=== PATIENT | male | born 1945 | race Caucasian/White ===

== ENCOUNTER 2017-01-02 18:41 | Inpatient (IN) | payer OTHER ==
[~2017-01-02] VITALS: Ht 177.8 cm; Wt 91.6 kg
[~2017-01-02 18:41] MED LIST: FLOMAX PO; GLIPIZIDE ER10 MG PO; GLUCOPHAGE500 MG PO; LIPITOR20 MG PO; LISINOPRIL10 MG PO; NORCO 5-325 TA1 EACH PO
[2017-01-02 18:42] VITALS: BP 154/90
[2017-01-02 19:04] LABS: URINE BILIRUBIN NEGATIVE (Negative); URINE BLOOD NEGATIVE (Negative); URINE COLOR YELLOW; URINE GLUCOSE-RANDOM* TRACE (Negative); URINE KETONES NEGATIVE (Negative); URINE NITRITE NEGATIVE (Negative); URINE PROTEIN (DIPSTICK) TRACE (Negative); URINE SPECIFIC GRAVITY >= 1.030 (1.003-1.035); URINE UROBILINOGEN 0.2 E.U./dl (0.2-1.0)
[2017-01-02 19:19] LABS: HEMOGLOBIN 12.5 gm/dL (14.0-18.0); MCH 31.3 pg (26.0-34.0); MCHC 34.6 g/dL (28.0-37.0); MCV 90.6 fL (80.0-100.0); PLATELET COUNT 112 thou/uL (150-400); RBC 3.98 mil/uL (4.50-6.00); RDW 13.7 % (10.5-14.5); WBC 6.7 thou/uL (4.0-11.0)
[2017-01-02] MEDS ORDERED: TRAMADOL 50 MG50 MG PO (19:19)
[2017-01-02 19:20] LABS: MANUAL DIFF YES
[2017-01-02 19:29] LABS: CALCIUM 9.4 mg/dL (8.5-10.1); POTASSIUM 3.5 mmol/L (3.5-5.1)
[2017-01-02 19:35] LABS: ALBUMIN 3.3 g/dL (3.4-5.0); DIRECT BILIRUBIN 0.3 mg/dL (<0.1-0.3); TOTAL BILIRUBIN 1.5 mg/dL (<0.1-1.0); TOTAL PROTEIN 6.6 g/dL (6.4-8.2)
[2017-01-02 19:56] LABS: ABSOLUTE NEUTROPHILS 4.4 thou/uL (1.4-8.2); TOTAL CELL COUNT 100
[2017-01-02 22:44] VITALS: BP 152/70
[2017-01-02 23:10] VITALS: BP 159/83
[2017-01-02] MEDS ORDERED: PIOGLITAZONE15 MG PO (23:12)
[2017-01-02] MEDS ORDERED: NORVASC5 MG PO (23:13)
[2017-01-02] MEDS ORDERED: AMARYL2 MG PO (23:14)
[2017-01-02] MEDS ORDERED: SERTRALINE HCL50 MG PO (23:15)
[2017-01-02] MEDS ORDERED: IBUPROFEN 200200 M1 PO (23:16)
[2017-01-02] MEDS ORDERED: ASPIR 8181 MG PO (23:16)
[2017-01-02] MEDS ORDERED: FISH OIL 1,001000 M2 PO (23:17)
[2017-01-03 04:30] VITALS: BP 140/66
[2017-01-03 06:03] LABS: HEMATOCRIT 32.6 % (42.0-52.0); HEMOGLOBIN 11.3 gm/dL (14.0-18.0); MCH 31.3 pg (26.0-34.0); MCHC 34.8 g/dL (28.0-37.0); MCV 89.9 fL (80.0-100.0); RBC 3.62 mil/uL (4.50-6.00); WBC 5.6 thou/uL (4.0-11.0)
[2017-01-03 06:14] LABS: ALBUMIN 2.8 g/dL (3.4-5.0); CALCIUM 8.5 mg/dL (8.5-10.1); CREATININE 0.9 mg/dL (0.7-1.3); POTASSIUM 3.9 mmol/L (3.5-5.1); TOTAL BILIRUBIN 0.9 mg/dL (<0.1-1.0); TOTAL PROTEIN 6.3 g/dL (6.4-8.2)
[2017-01-03 08:47] VITALS: BP 139/67
[2017-01-03 16:19] VITALS: BP 130/71
[2017-01-03 19:40] VITALS: BP 157/64
[2017-01-04 04:07] LABS: CALCIUM 8.5 mg/dL (8.5-10.1); POTASSIUM 3.6 mmol/L (3.5-5.1)
[2017-01-04 04:12] LABS: HEMATOCRIT 30.6 % (42.0-52.0); HEMOGLOBIN 10.6 gm/dL (14.0-18.0); MCH 31.2 pg (26.0-34.0); MCHC 34.7 g/dL (28.0-37.0); RBC 3.4 mil/uL (4.50-6.00); RDW 13.5 % (10.5-14.5); WBC 5.7 thou/uL (4.0-11.0)
[2017-01-04 05:05] VITALS: BP 146/64
[2017-01-04 08:00] VITALS: BP 184/86
[2017-01-04 12:11] LABS: URINE BILIRUBIN NEGATIVE (Negative); URINE BLOOD TRACE (Negative); URINE COLOR YELLOW; URINE GLUCOSE-RANDOM* NEGATIVE (Negative); URINE KETONES TRACE (Negative); URINE LEUKOCYTES-REFLEX NEGATIVE (Negative); URINE PROTEIN (DIPSTICK) NEGATIVE (Negative); URINE SPECIFIC GRAVITY 1.025 (1.003-1.035); URINE UROBILINOGEN 0.2 E.U./dl (0.2-1.0)
[2017-01-04 16:00] VITALS: BP 144/64
[2017-01-04 20:21] VITALS: BP 163/77
[2017-01-05 04:25] VITALS: BP 175/95
[2017-01-05 08:00] VITALS: BP 177/79
[2017-01-05 15:53] VITALS: BP 165/83
[2017-01-05 19:35] VITALS: BP 160/71
[2017-01-06 05:32] VITALS: BP 167/74
[2017-01-06 05:36] LABS: HEMATOCRIT 30.3 % (42.0-52.0); HEMOGLOBIN 10.7 gm/dL (14.0-18.0); MCH 31.5 pg (26.0-34.0); MCHC 35.4 g/dL (28.0-37.0); MCV 88.9 fL (80.0-100.0); RBC 3.41 mil/uL (4.50-6.00); RDW 13.7 % (10.5-14.5); WBC 7.3 thou/uL (4.0-11.0)
[2017-01-06 05:53] LABS: CALCIUM 8.1 mg/dL (8.5-10.1); CREATININE 0.9 mg/dL (0.7-1.3); POTASSIUM 3.1 mmol/L (3.5-5.1)
[2017-01-06 08:33] VITALS: BP 172/90
[2017-01-06] MEDS ORDERED: FLOMAX0.4 MG PO (13:56)
[2017-01-06] MEDS ORDERED: VENTOLIN HFA 1818 GM INH (13:58)
[2017-01-06] MEDS ORDERED: AUGMENTIN 875875 MG PO (13:59)
[2017-01-06 14:37] VITALS: BP 172/90
[2017-01-06 16:00] VITALS: BP 182/81
[2017-01-06 19:45] VITALS: BP 175/93
[2017-01-07] VITALS: BP 173/88
[2017-01-07 05:08] VITALS: BP 154/71
[2017-01-07 08:00] VITALS: BP 165/73
== END 2017-01-07 15:53 | disposition home or self-care (01) | DRG 177 ==
LOC: ER 18:41 → 4S 21:59 → EROBS 21:59 → 4S 22:52
PROVIDERS: Hospitalist; Nurse Practitioner
DX: J69.0 Pneumonitis due to inhalation of food and vomit (principal); E43 Unspecified severe protein-calorie malnutrition; E78.5 Hyperlipidemia, unspecified; I10 Essential (primary) hypertension; N40.0 Benign prostatic hyperplasia without lower urinary tract symptoms; E11.9 Type 2 diabetes mellitus without complications; M79.1 Myalgia; R33.9 Retention of urine, unspecified; Z79.899 Other long term (current) drug therapy; Z79.82 Long term (current) use of aspirin; Z68.29 Body mass index [BMI] 29.0-29.9, adult
CPT/HCPCS: 10195